=== PATIENT | female | born 1980 | race Caucasian/White ===

== ENCOUNTER 2025-05-25 19:16 | Emergency (ER) | payer OTHER ==
[~2025-05-25] VITALS: Ht 154.9 cm; Wt 55.7 kg
[2025-05-25] MEDS ORDERED: HYDROCODON-ACE1 EA10 PO (21:46)
[2025-05-25 21:59] VITALS: BP 132/78
[2025-05-25] MEDS ORDERED: HYDROCODONE BIT/ACETAMINOPHEN 5/325 MG 1 TAB HOME.PACK PO ONE (22:00)
== END 2025-05-25 22:00 | disposition home or self-care (01) ==
LOC: ED 19:16
DX: S62.346A Nondisplaced fracture of base of fifth metacarpal bone, right hand, initial encounter for closed fracture (principal); W22.8XXA Striking against or struck by other objects, initial encounter
CPT/HCPCS: 29125; 73130; 99283; A9270

== ENCOUNTER 2025-06-07 08:34 | Day surgery (SDC) | payer OTHER ==
[~2025-06-07] VITALS: Ht 154.9 cm; Wt 53.6 kg
[~2025-06-07 08:34] MED LIST: CEFAZOLIN SODIUM 2 GM/20 ML SYR IV SCH; HYDROCODON-ACE1 EA10 PO; IBLOOD GLUCOSE TEST STRIP 1 EA TEST VI PRN; LACTATED RINGER'S 0 ML IV ONE; LACTATED RINGER'S 1,000 ML IV SCH; LIDOCAINE HCL 1% 5 ML SDV INJ ONE; LIDOCAINE HCL 2% 5 ML SDV ONE; Ropivacaine HCl 0.5% 30 ML VIAL ONE
[2025-06-07 08:53] VITALS: BP 109/68
[2025-06-07] MEDS ORDERED: GABAPENTIN600 MG (08:56)
[2025-06-07] MEDS ORDERED: PROTONIX20 MG PO (08:56)
--- NOTE | 2025-06-07 09:09 | NUR ---
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
[2025-06-07] MEDS ORDERED: KETOROLAC TROMETHAMINE 15 MG/ML VIAL IV PRN (09:15)
[2025-06-07] MEDS ORDERED: HYDROCODONE/ACETA 7.5/325 TAB PO PRN (09:15)
--- NOTE | 2025-06-07 10:11 | NUR ---
06/07/25 Lyly1 Guerita Fink LE 1001: PT ARRIVES TO PACU. REPORT RECEIVED FROM [employer]. PT HAS ULNAR NERVE BLOCK IN PLACE. SHE DOES NOT RESPOND TO STIMULI- TACTILE. ICE PLACED TO RIGHT HAND. ARRIVES WITH SLING IN PLACE. LE 1005: PT STILL SLEEPING, NO RESPONSE TO TACTILE STIMULI. LE 1010: STILL SLEEEPING.
[2025-06-07] MEDS ORDERED: MIDAZOLAM HCL 2 MG/2 ML VIAL IV PRN (10:15)
[2025-06-07] MEDS ORDERED: PROCHLORPERAZINE EDISYLATE 10 MG/2 ML VIAL IV PRN (10:15)
[2025-06-07] MEDS ORDERED: HYDROmorphone HCL 1 MG/ML SYR IV PRN (10:15)
[2025-06-07] MEDS ORDERED: fentaNYL citrate 50 MCG/ML SDV IV PRN (10:15)
[2025-06-07] MEDS ORDERED: NALOXONE HCL 0.4 MG SYR IV PRN (10:15)
[2025-06-07] MEDS ORDERED: KETOROLAC TROMETHAMINE 30 MG/ML VIAL IV PRN (10:15)
[2025-06-07] MEDS ORDERED: IBLOOD GLUCOSE TEST STRIP 1 EA TEST VI PRN (10:15)
[2025-06-07 10:59] VITALS: BP 104/75
--- NOTE | 2025-06-08 08:35 | OR ---
[facility] [address] [place], [place] [address] Signed DATE OF OPERATION: 06/07/2025 SURGEON: Andi Aranda MD PREOPERATIVE DIAGNOSIS: Fifth metacarpal fracture, right displaced. POSTOPERATIVE DIAGNOSIS: Fifth metacarpal fracture, right displaced. PROCEDURE PERFORMED: Closed reduction and percutaneous pinning, right fifth metacarpal. STERILE TECH: Shelly Matthews PA-C. ANESTHESIA: General. TOURNIQUET TIME: 0. BLOOD LOSS: Minimal. IMPLANTS: 1.25 K-wires x3. BRIEF HISTORY: Jyoti is a 44-year-old female, who suffered an oblique fracture of her proximal fifth metacarpal. This was nondisplaced initially, however, it continued to migrate proximally and angulate. Risks and benefits of operative treatment were discussed with her and she elected to proceed. DESCRIPTION OF PROCEDURE: Once consent was obtained, she was taken to the operating room. After adequate anesthesia, she was placed on the day surgery table and a hand table was brought in. A well-padded proximal arm tourniquet was placed. The arm was then prepped and draped in a standard sterile fashion. The C-arm was brought in and a percutaneous tenaculum was introduced on both sides of the fracture and the fracture was reduced. Good reduction Electronically Signed By: ANDI ARANDA MD 06/08/25 0835 PATIENT NAME: JYOTI VELASQUEZ OPERATIVE REPORT DATE OF : 78 REPORT #: [id number] PHYSICIAN: ANDI ARANDA MD PCP: NO PRIMARY CARE PHYSICIAN REPORT IS CONFIDENTIAL AND NOT TO BE RELEASED WITHOUT AUTHORIZATION [facility] [address] [place] [address] [place], [place] [address] Signed was obtained. One K-wire was placed from the lateral side across the fracture and another one from medial side. Third was then placed distally. Once this was accomplished, the fracture was found to be quite stable and anatomically reduced. All three pins were cut and Jurgan balls were applied. The wounds were dressed with Allevyn sterile gauze and sterile cast padding. She was placed in a boxer's splint. She tolerated the procedure well. All sponge, needle, and instrument counts were correct. Andi Aranda MD BA/VINNYL /[id number] Copies: ~ Electronically Signed By: ANDI ARANDA MD 06/08/25 0835 PATIENT NAME: JYOTI VELASQUEZ OPERATIVE REPORT DATE OF : 78 REPORT #: [id number] PHYSICIAN: ANDI ARANDA MD PCP: NO PRIMARY CARE PHYSICIAN REPORT IS CONFIDENTIAL AND NOT TO BE RELEASED WITHOUT AUTHORIZATION
== END 2025-06-07 11:09 | disposition home or self-care (01) ==
LOC: DS 08:34
PROVIDERS: ATTEND Specialist
PROC: 0PSP34Z Reposition Right Metacarpal with Internal Fixation Device, Percutaneous Approach (ICD-10-PCS; principal; 2025-06-07 11:35)
DX: S62.326A Displaced fracture of shaft of fifth metacarpal bone, right hand, initial encounter for closed fracture (principal); W22.09XA Striking against other stationary object, initial encounter; G89.18 Other acute postprocedural pain
CPT/HCPCS: 01820; 64415; 73120; 84703; A9270; J0690; J1885; J2003; J2704; J2795; J7121